=== PATIENT | male | born 1995 | race Caucasian/White ===

== ENCOUNTER 2018-11-13 21:35 | Inpatient (IN) | payer OTHER ==
[~2018-11-13] VITALS: Ht 175.3 cm; Wt 107.8 kg
--- NOTE | 2018-11-13 21:45 | NUR ---
PT BIB FRIEND FOR ALOC. PER PTS FRIEND THE PT HAD INJECTED METHAMPHETAMINE AND HEROIN EARLIER IN THE DAY. PTS FRIEND ALSO SAW THAT THE PT HAD TAKEN AN UNKNOWN AMOUNT OF ADDERALL AND XANAX. PTS FRIEND NOTICED THAT THE PTS BREATHING WAS BECOMING IRREGULAR ABOUT 30 DEFENSE ATTORNEY. PTS FRIEND DROVE PT TO THE ED AND PT HAD TO BE HELPED OUT OF FRIENDS VEHICLE. PT WAS NOT RESPONSIVE BUT HAD A PULSE. NO CPR WAS GIVEN. VISIBLE RESPIRATORY DISTRESS NOTED. TWO IV LINES WERE INITIATED ONE IN RT AC 18 G BY NETO GROVES AND ANOTHER IV LINE WAS STARTED BY JESSICA GROVES IN LEFT AC 18G. PER DR WANG VERBAL ORDERS NARCAN 4MG WAS GIVEN IVP BY NETO RN @2131. 8MG ZOFRAN WAS GIVEN BY JESSICA GROVES IVP @ 2138. 4MG NARCAN WAS GIVEN AT 2139 IVP THAT WAS ADMINISTERED BY DR WANG. PER ORDER ANOTHER ROUND OF NARCAN 4MG WAS GIVEN BY JESSICA GROVES. PT HAD ACUNA CATHETER PLACED BY JESSICA GROVES AT 2146. PT DID NOT BECOME ALERT OR RESPONSIVE AFTER MEDICATION OR ACUNA PLACEMENT. DR WANG DECIDED TO INTIBATE THE PT. PER MD ORDER PT WAS MEDICATED WITH SUCCINYLCHOLINE PRIOR TO INTIBATION. PT WAS INTIBATED BY DR WANG AT 2149. PT HAD NG TUBE PLACED AND HAD AN XRAY AFTER TO CONFIRM PLACEMENT. PTS MOTHER WAS ABLE TO VERIFY THAT PT HAS BEEN STRUGGLING WITH DRUG ABUSE FOR A FEW MONTHS. PER PTS MOM THE PT HAS BEEN IN AND OUT OF REHAB SINCE AUGUST. WILL CONTINUE TO MONITOR CLOSELY
--- NOTE | 2018-11-13 21:50 | NUR ---
PT INTUBATED BY DR WANG WITH MAXWELL RT AT BEDSIDE TO ASSIST. PT INTUBATED WITH 7.5 TUBE 25 AT THE LIP. ADMINISTERED 80MG SUCCITYLCHOLINE PRIOR TO INTUBATION.
--- NOTE | 2018-11-13 21:59 | NUR ---
16F OG TUBE PLACED BY MYSELF JESSICA GROVES. SECURED AND XRAY CALLED FOR PLACEMENT.
--- NOTE | 2018-11-13 22:00 | NUR ---
PT VOMITING FOAMY BROWN VOMIT. SUCTIONED BY MAXWELL GARRETT
--- NOTE | 2018-11-13 22:30 | NUR ---
WENT WITH DR WANG TO DISCUSS PLAN OF CARE WITH PTS MOTHER AND FAMILY MEMBERS
[2018-11-13 22:50] LABS: PLATELET COUNT 224 x10^3mcL (130-400); RED CELL DISTRIBUTION WIDTH 13.9 % (11.5-14.5)
[2018-11-13 22:52] LABS: BASOPHIL % 0 % (0-2)
--- NOTE | 2018-11-13 22:56 | NUR ---
PT BACK FROM CT. RN MERRY, EMT NATALIO AND RT AT BEDSIDE. REPORT RECIEVED FROM MERYR. PT INTUBATED AND ON VENTILATOR. PT NOTED TO BE HAVING FULL BODY MUSCLE SPASM AND TO BE IN A DECORTICATE POSTURING, TOES STIFF AND POINTED INWARD. PT HAD BOWEL MOVEMENT WHILE IN CT. PT PLACED ON FULL SECURE SOFTWARE ASSESSOR. RESTRAINTS IN PLACE.
[2018-11-13 23:07] LABS: CALCIUM 8.4 mg/dL (8.5-10.1); CARBON DIOXIDE 25.3 mmol/L (21-32); CHLORIDE SERUM 102 mmol/L (98-107); CREATININE SERUM 1.7 mg/dL (0.7-1.3); GFR1 52 mL/min; GLUCOSE SERUM 132 mg/dL (74-106); SODIUM SERUM 140 mmol/L (136-145)
--- NOTE | 2018-11-13 23:11 | NUR ---
RN BENNIE AND EMT KIRTI AT BEDSIDE TO HELP CLEAN PT FROM PREVIOUS BM.
[2018-11-13 23:18] LABS: AMPHETAMINE QUAL UR POSITIVE (See below)
[2018-11-13 23:21] LABS: ALBUMIN 3.5 g/dL (3.4-5.0); ALKALINE PHOSPHATASE 43 U/L (46-116); ALT/SGPT 132 U/L (16-63); AST/SGOT 77 U/L (15-37); BILIRUBIN TOTAL 0.3 mg/dL (0.20-1.00); TOTAL PROTEIN, SERUM 6.7 g/dL (6.4-8.2)
[2018-11-14] VITALS (17 sets, daily range): BP systolic 81–117; BP diastolic 46–68; Ht 175.3 cm; Wt 107.8 kg
--- NOTE | 2018-11-14 00:34 | NUR ---
PT STARTED ON FOURTH LITER BOLUS OF NS. BP 85/53 HR 112 02 93%. RT MADE AWARE OF LOW 02.
--- NOTE | 2018-11-14 00:38 | NUR ---
0038: RT AT BEDSIDE TO SUCTION PT THROUGH ETT. PTS O2 NOW 95%. 0046: PTS BP AT 65/47, PROPOFOL DRIP DECREASED TO RUN AT 25MCG/KG. YANELI AVERY AT BEDSIDE. 0100: PTS BP 88/65 PROPOFOL DRIP DECREASED TO 20MCG/KG.
--- NOTE | 2018-11-14 01:08 | NUR ---
REPORT GIVEN TO YANELI SANDERS TO ASSUME CARE OF PT.
[2018-11-14 01:19] LABS: PHOSPHOROUS 7.4 mg/dL (2.5-4.9)
--- NOTE | 2018-11-14 01:20 | NUR ---
PT TRANSFERRED TO ICU WITH EMT NATALIO AND RT MAXWELL. PT TRANSFERRED WITH VENT, BELT MAKER HELPER, AND PROPOFOL DRIP. YANELI SANDERS TO ASSUME CARE OF PT.
--- NOTE | 2018-11-14 01:30 | NUR ---
RECEIVED REPORT FROM YANELI PAINTING. PT IS ALERT AND RESPONSIVE TO PAINFUL STIMULUS. PT IS INTUBATED AND WAS OFF SEDATION ON ARRIVAL TO ICU. PT WAS ON 25 MCG/KG/MIN IN ER. PT APPEARS TO HAVE DECORTICATE POSTURING TO BLE. PT ALSO HAD SEIZURE ACTIVITY IN THE ED. PUPILS ARE 3 MM AND SLUGGISH BILATERALLY. EENT FREE OF DISCHARGE. NO JVD NOTED. TRACHEA MIDLINE. 7.5 ETT AT 25 LL. OGT PATENT AND INTACT. PT VENT SETTINGS INCLUDE: RATE: 14, PEEP:5, TV: 550, O2: 40%. LUNG SOUNDS DIMINISHED TO BLL, AND BUL. ABD IS SOFT AND ROUNDED. ACTIVE BOWEL SOUNDS X4Q. ACUNA DRAINING VIA GRAVITY. URINE IS YELLOW WITH FAIR OUTPUT. SKIN INTACT. PT IS NPO AT THIS TIME. FAMILY AT BEDSIDE. ALL QUESTIONS AND CONCERNS ANSWERED.
[2018-11-14 02:14] LABS: microscopic required? YES; urine erythrocyte TRACE (NEGATIVE)
[2018-11-14 04:03] LABS: BASOPHIL % 0.2 % (0-2); PLATELET COUNT 208 x10^3mcL (130-400)
[2018-11-14 04:12] LABS: CALCIUM 7.6 mg/dL (8.5-10.1); CARBON DIOXIDE 24.1 mmol/L (21-32); CHLORIDE SERUM 105 mmol/L (98-107); CREATININE SERUM 1.2 mg/dL (0.7-1.3); GFR1 > 60 mL/min; GLUCOSE SERUM 89 mg/dL (74-106); PHOSPHOROUS 3.3 mg/dL (2.5-4.9); POTASSIUM SERUM 4.6 mmol/L (3.5-5.1); SODIUM SERUM 137 mmol/L (136-145)
--- NOTE | 2018-11-14 05:22 | NUR ---
FIO2 TITRATED TO 30%, PT TOLERATING WELL.
--- NOTE | 2018-11-14 05:23 | NUR ---
ON ADMISSION TO ICU, PT'S PROPOFOL WAS OFF ON ROUTE FROM ED. PT WAS NOT RESTLESS. TITRATED FROM 0 TO 5 MCG/KG/MIN.
--- NOTE | 2018-11-14 05:25 | NUR ---
ORAL CARE, AND ACUNA CARE PROVIDED. PT TOLERATED WELL. PT SHOWED SOME RESTLESSNESS WHEN PERFORMING ORAL CARE.
--- NOTE | 2018-11-14 07:30 | NUR ---
RECIEVED REPORT FROM YANELI SANDERS TO ASSUME ALL CARES. ALL QUESTIONS AND CONCERNS ADDRESSED. WILL CONTINUE TO MONITOR.
--- NOTE | 2018-11-14 08:00 | NUR ---
VT TITRATED DOWN FROM [address] WETZEL. NO SIGNS OF RESP DISTRESS. WILL CONTINUE TO MONITOR.
--- NOTE | 2018-11-14 08:02 | NUR ---
DR. WETZEL ASSESSED PATIENT. UPDATES PROVIDED AND POC DISCUSSED. DR. WETZEL ON PHONE WITH POISON CONTROL AT THIS TIME. WILL CONTINUE TO MONITOR.
--- NOTE | 2018-11-14 08:09 | NUR ---
POISON CONTROL HAD NO SUGGESTIONS PER DR. WETZEL. WILL CONTINUE TO MONITOR.
--- NOTE | 2018-11-14 10:36 | NUR ---
PATIENT IS SEDATED BUT FOLLOWING COMMANDS, ABLE TO SHOW 2 FINGERS WITH HANDS. FAMILY AT BEDSIDE. PATIENT GESTURES YES UNDERSTANDING NOT TO PULL OUT TUBES OR LINES IF RESTRAINTS COME OFF. FAMILY MADE AWARE AND TO NOTIFY NURSE IF FAMILY LEAVES PATIENT ALONE. BILATERAL SOFT WRISTS RESTRAINTS REMOVED. PATIENT ON C-PAP 10/5, TOLERATING WELL. DIPRIVAN DRIP TITRATED OFF. RSS AT THIS TIME IS 3. WILL CONTINUE TO MONITOR.
--- NOTE | 2018-11-14 12:10 | NUR ---
DR. HERNANDEZ, RESIDENTS, MACHINE SPECIALIST AND PRIMARY RN AT BEDSIDE FOR MORNING ROUNDS. PLAN OF CARE DISCUSSED WITH PT'S PARENTS AT BEDSIDE. ALL IN AGREEMENT TO PLAN. WILL CONT TO MONITOR.
--- NOTE | 2018-11-14 12:41 | NUR ---
DR. WETZEL AT BEDSIDE ASSESSING PATIENT. PATIENT REMAINS TOO DROWSY TO EXTUBATE AT THIS TIME. WILL WAIT FOR PATIENT TO BECOME MORE ALERT AND THEN ATTEMPT WEANING PARAMTERS. RT LAUREL MADE AWARE. FAMILY AT BEDSIDE. WILL CONTINUE TO MONITOR.
--- NOTE | 2018-11-14 14:37 | NUR ---
TECH AT BEDSIDE FOR ECHOCARDIOGRAM.
--- NOTE | 2018-11-14 17:04 | NUR ---
RT LAUREL ADVANCED ETT AND SECURED AT 27 CM LL. NO SIGNS OF DISTRESS. WILL CONTINUE TO MONITOR.
--- NOTE | 2018-11-14 18:27 | NUR ---
PATIENT EXTUBATED BY RT LAUREL PER DR. WETZEL ORDER AT THIS TIME. PATIENT PLACED ON 3L NC. CURRENT O2 SAT 96%. NO SIGNS OF RESP DISTRESS. FAMILY AT BEDSIDE. WILL CONTINUE TO MONITOR.
--- NOTE | 2018-11-14 18:43 | NUR ---
PT PLACED ON CPAP AT 1030 TODAY, PEEP OF 5, PS OF 10. PT DID VERY WELL ON CPAP ALL DAY. ONCE PATIENT FINALLY STARTED TO WAKE UP AND FOLLOW COMMANDS. WEANING PARAMETERS WERE FOLLOWS: VC > 1100, MIP -43.9, RSBI 30.9. AT [address] WETZEL WAS CALLED AND ORDERED EXTUBATION, HHN AND IS FOR THE PATIENT. PT WAS EXTUBATED SUCESSFULLY AND PLACED ON 3LNC. PT DOING WELL. BS CLEAR. PT ADVISED NO RESPIRATORY DISTRESS, NO DISTRESS OBSERVED. RN AWARE.
--- NOTE | 2018-11-14 19:05 | NUR ---
RECEIVED REPORT FROM LEFTY GROVES TO ASSUME CARE
--- NOTE | 2018-11-14 19:30 | NUR ---
RECEIVED PT LAYING IN BED. PT IS DROWSY AT THIS TIME, A/O X 4. ABLE TO FOLLOW COMMANDS. RESPONDS TO VERBAL STIMULI. DENIES ZHOU. NO FACIAL DROOP NOTED.EENT FREE OF DISCHARGE. TRACHEA MIDLINE. NO JVD NOTED. BREATHING IS E/U ON 2 L NC. LUNGS SOUND CLEAR BILAT. DENIES ANY SOB. SYMMETRICAL CHEST EXPANSION NOTED. S1/S2 HEART SOUNDS AUSCULTATED. DENIES CP. CHEST WALL EQUAL AND SYMMETRICAL.PALPABLE PULSES X 4 EXTREMETIES. SKIN IS WARM AND DRY. NO EDEMA NOTED. RAC AND LAC IV INTACT, SECURED, DRESSING CDI. NO S/S OF INFILTRATION NOTED. NS INFUSING @ 100 ML/HR. SCD IN PLACE. GENERALIZED WEAKNESS. NO JOINT SWELLING/DEFORMITY NOTED. PT ABLE TO REPOSITION SELF INDEPENDENTLY. PT NPO AT THIS TIME FOLLOWING EXTUBATION @ 18:27. NO N/V NOTED. ABD IS SOFT, ROUND, NONTENDER TO PALPATION. BOWEL SOUNDS ACTIVE X 4 QUADRANTS. NO BM NOTED. ACUNA INTACT/SECURED, DRAINING VIA GRAVITY WITH YELLOW COLORED URINE NOTED. NO SCOROTAL EDEMA NOTED. SKIN IS INTACT. PT ABLE TO REPOSITION SELF INDEPENDENTLY. PT WITH AN ORAL TEMP OF 100.6, COOLING MEASURES IN PLACE. PT IS CALM AT THIS TIME. FAMILY AT THE BEDSIDE. BED IN LOW POSITION. CALL LIGHT IN REACH. WILL CONTINUE TO MONITOR
--- NOTE | 2018-11-14 22:15 | NUR ---
SWALLOW SCREEN PERFORMED POST EXTUBATION. HOB WAS ELEVATED. PT WAS ABLE TO SWALLOW SMALL SIPS OF WATER WITHOUT COUGHING/CHOCKING. NO S/S OF ACUTE DISTRESS NOTED. PT TOLERATED WELL. PT MEDICATED WITH TYLENOL FOR A TEMP OF 100.5 AFTERWARDS. COOLING MEASURES IN PLACE. WILL CONTINUE TO MONITOR
--- NOTE | 2018-11-15 01:04 | NUR ---
PT IS SLEEPING, EASILY AROUSABLE. PT ON 2 L NC STATTING 96%. NO S/S OF ACUTE DISTRESS NOTED. FAMILY AT THE BEDSIDE. BED IN LOW POSITION. CALL LIGHT IN REACH. WILL CONTINUE TO MONITOR
[2018-11-15 03:37] VITALS: BP 107/51
--- NOTE | 2018-11-15 03:50 | NUR ---
Pt REFUSES HHN TX AT THIS TIME. SPO2 96%. NO RESP DISTRESS NOTED. WILL MONITOR.
--- NOTE | 2018-11-15 05:35 | NUR ---
X-RAY TECH AT THE BEDSIDE
[2018-11-15 05:48] LABS: BASOPHIL % 0.3 % (0-2); PLATELET COUNT 220 x10^3mcL (130-400); RED CELL DISTRIBUTION WIDTH 14.1 % (11.5-14.5)
[2018-11-15 06:13] LABS: CALCIUM 8.4 mg/dL (8.5-10.1); CARBON DIOXIDE 28.5 mmol/L (21-32); CHLORIDE SERUM 100 mmol/L (98-107); CREATININE SERUM 0.8 mg/dL (0.7-1.3); GFR1 > 60 mL/min; GLUCOSE SERUM 81 mg/dL (74-106); PHOSPHOROUS 2.7 mg/dL (2.5-4.9); POTASSIUM SERUM 3.2 mmol/L (3.5-5.1); SODIUM SERUM 129 mmol/L (136-145)
--- NOTE | 2018-11-15 07:02 | NUR ---
REPORT GIVEN TO LEFTY GROVES TO ASSUME CARE
[2018-11-15 07:30] VITALS: BP 116/70
--- NOTE | 2018-11-15 08:35 | NUR ---
DR. WETZEL AT BEDSIDE TO ASSESS PATIENT. UPDATES PROVIDED AND POC DISCUSSED. WILL CONTINUE TO MONITOR.
--- NOTE | 2018-11-15 10:11 | NUR ---
FEBRUARY FROM POISON CONTROL CALLED AND RECIEVED UPDATES ON PATIENT'S HEALTH STATUS. PATIENT IS A/O X4, EXTUBATED ON 11/14/18 AND CURRENTLY ON 2L NC. POISON CONTROL STATES PATIENT'S HEALTH SHOULD JUST IMPROVE. NO RECOMMENDATIONS. WILL CONTINUE TO MONITOR.
[2018-11-15 11:34] VITALS: BP 136/68
--- NOTE | 2018-11-15 11:56 | NUR ---
F/C DC'D AT THIS TIME. PATIENT TOLERATED WELL. 1600 ML OF CLEAR YELLOW URINE DRAINED. WILL CONTINUE TO MONITOR.
--- NOTE | 2018-11-15 16:14 | NUR ---
PATIENT TRANSFERRED TO TELE VIA BED ATTACHED TO ENGINEERING DRAWINGS CHECKER ACCOMPANIED BY NURSE. VSS. REPORT GIVEN TO YANELI ROMAN PRIOR TO PATIENT ARRIVING TO FLOOR. ALL QUESTIONS AND CONCERNS ADDRESSED. ALL BELONGINGS SENT WITH PATIENT AND FAMILY. FAMILY FOLLOWED PATIENT UP TO ROOM.
--- NOTE | 2018-11-15 16:30 | NUR ---
RECEIVED PATIENT FROM ICU VIA BED SEEN ASLEEP, AROUSABLE, DROWSY, PER MECHANICAL SERVICE TECHNICIAN ATIVAN 2MG IVP HAD JUST GIVEN, V/S CHECKED BP 107/49, HR =115, RR 16, O2SAT 91% ON ROOM AIR, TEMP 99.2. IVF NS TO RAC INFUSING WELL TO AT 80ML/HR. S/L TO LAC INTACT AND PATENT. PLAN OF CARE DISCUSSED. CALL LIGHT PLACED WITHIN EASY REACH. SIDERAILS UP X2. PATIENT'S FAMILY AT BEDSIDE.
--- NOTE | 2018-11-15 20:08 | NUR ---
PT CURRENTLY RESTING IN BED, NO ACUTE DISTRESS. A/O X4, FORGETFUL AT TIMES. DROWSY BUT ARROUSABLE. TELE #45 SHOWING SINUS TACHYCARDIA, DENIES CHEST PAIN. PULSES PALPABLE IN ALL EXTREMITIES, NO EDEMA NOTED. LUNG SOUNDS CTA BILATERALLY, DENIES SOB. RECEIVING O2 VIA NC AT 2LPM. BOWEL SOUNDS ACTIVE, LAST BM 11/15/18, DIARRHEA. VOIDING FREELY. GENERALIZED WEAKNESS, AMBULATORY WITH ASSIST. SKIN INTACT. IV PATENT AND INTACT. BED IN LOWEST POSITION, SIDE RAILS UP X2, CALL LIGHT WITHIN REACH. WILL CONTINUE TO MONITOR.
[2018-11-15 21:41] VITALS: BP 110/68
--- NOTE | 2018-11-16 00:43 | NUR ---
PT CURRENTLY RESTING IN BED, NO ACUTE DISTRESS. WILL CONTINUE TO MONITOR.
[2018-11-16 04:29] LABS: CK-BB 0 % (0); CK-MB 3 % (0-3); CK-MM 97 % (97-100); MACRO TYPE 1 0 % (Not Observed); MACRO TYPE 2 0 % (Not Observed)
[2018-11-16 05:32] VITALS: BP 122/71
--- NOTE | 2018-11-16 06:24 | NUR ---
PT SLEPT PERIODICALLY THROUGHOUT NIGHT, NO ACUTE DISTRESS. ALL NEEDS MET AND ATTENDED TO. NO SIGNIFICANT CHANGES. IV PATENT AND INTACT. BED IN LOWEST POSITION, SIDE RAILS UP X2, CALL LIGHT WITHIN REACH. WILL ENDORSE CARE TO ONCOMING NURSE.
[2018-11-16 06:49] LABS: BASOPHIL % 0.3 % (0-2); PLATELET COUNT 219 x10^3mcL (130-400); RED CELL DISTRIBUTION WIDTH 13.5 % (11.5-14.5)
[2018-11-16 07:16] LABS: CALCIUM 8.1 mg/dL (8.5-10.1); CARBON DIOXIDE 25.1 mmol/L (21-32); CHLORIDE SERUM 107 mmol/L (98-107); CREATININE SERUM 0.8 mg/dL (0.7-1.3); GFR1 > 60 mL/min; GLUCOSE SERUM 91 mg/dL (74-106); POTASSIUM SERUM 3.8 mmol/L (3.5-5.1); SODIUM SERUM 140 mmol/L (136-145)
--- NOTE | 2018-11-16 08:00 | NUR ---
DROWSY.DENIES ANY PAIN/DISCOMFORT.LUNGS CLEAR.ON SR-ST ON THE MONITOR.IVF NS GOING AT 70 ML/HR INFUSING WELL.FATHER AT BEDSIDE.CALL LIGHT WITHIN REACH.INSTRUCTED TO CALL FOR ANY PAIN/DISCOMFORT.WILL CONTINUE TO MONITOR PT.
[2018-11-16 09:30] VITALS: BP 107/69
--- NOTE | 2018-11-16 10:00 | NUR ---
AND MEDICINE TEAM AT BEDSIDE. PER WILL D/C THE ROUND THE CLOCK ATIVAN AND WILL ONLY ORDER PRN ATIVAN.PT NEEDS TO WALK.WILL ORDER PT EVAL.
--- NOTE | 2018-11-16 14:10 | NUR ---
Initial Nutrition Assessment- Dx: Polysubstance overdose, respiratory arrest PMHx: asthma, ADHD PSHx: knee surgery Labs: (11/16) BUN 3 L, Ca 8.1 L, Hct 40 L, RBC 4.39 L (11/13) AST 77 H, ALT 132 H, ALP 43 H, amylase 173 H Meds: ativan, colace, NaCl IV, heparin Diet: regular diet x 1 day PO Intake: 40-100% of meals Ht: 5'9 Wt: 229 lb, 104 kg BMI: 35.1 kg/m2 (Obese Class II) IBW: 160 lb, 73 kg; Adj IBW Obesity: 177 lb, 81 kg %IBW: 143 UBW: 220 lb Age: 23 yrs old Food Allergies: NKFA Skin:is intact. Nicholas: 18 Edema: no edema noted. GI: abd is soft/round w/ active bowel sounds. Last BM 11/15/18, c/o diarrhea Per H&P, pt was brought in by friend for ALOC. Per friend, pt took an unknown amount of xanax and adderall in addition to heroine and crystal meth. He then noticed him becoming unresponsive w/ shallow breathing so he brouight him to the ED. Pt's mother states that he has been in and out of rehab for substance abuse. Pt's friend day before admission and mother believs that he might have intentionally tried to overdose. Bed huddle Pt visit, +lethargic, pt is pending psych consult. w/ sitter at bedside, extubated 11/14/18 Pt c/o decreased appetite. Problem with: no c/o N/V/D/C. Problems with: Chewing: no Swallowing: no Current appetite: poor to fair Recent wt change: wt gain %wt change: n/a Vitamin/Supplement use: none Special diet at home: regular diet Physical activity: none Education: pt is not interested. Estimated Nutritional Needs Based on actual body weight 81 kg Energy: 6137-6328 kcal/d (25-30 kcal/kg-maintenance) Protein: 65-81 g/d (.8-1 g/kg-maintenance and preservation of lean body mass) Fluid: 7425-5201 ml/d (1 ml/kcal-fluid balance) or per doctor Nutrition Diagnosis Increased risk for malnturition related to behavioral factors as evidenced by pt's report of decreased appetite, polysubstance abuse and suicidal ideation. Intervention *Recommend continuing Regular diet per MD order. *Consider adding Ensure Enlive BID if/when PO intake remains poor >5 days. Monitor/Evaluate Goal: PO intake at least 75% of estimated needs Monitor: PO intake, Labs, GI function F/U in 3-5 days as moderate risk (11/19-11/21)
--- NOTE | 2018-11-16 14:10 | NUR ---
*Recommend continuing Regular diet per MD order. *Consider adding Ensure Enlive BID if/when PO intake remains poor >5 days.
--- NOTE | 2018-11-16 17:00 | NUR ---
WENT TO TALK TO PT AND FAMILY REGARDING THE PLAN.PT WILL BE DISCHARGE TOMORROW.ALSO ORDERED FOR PT TO SHOWER.
[2018-11-16 17:30] VITALS: BP 127/75
--- NOTE | 2018-11-16 17:30 | NUR ---
PT HAD A SHOWER.TOLERATED IT WELL.CONNECTED PT BACK TO TELEL.
--- NOTE | 2018-11-16 17:46 | NUR ---
GAVE PT ATIVAN 1 MG PO FOR C/O ANXIETY.
--- NOTE | 2018-11-16 19:20 | NUR ---
REC'D PT FROM DAY NURSE. FAMILY AT BEDSIDE. PT RESTING IN BED SLEEPING. AWAKENS WITH VERBAL STIMULI. DROWSY. AAOX4, SPEECH CLEAR, FOLLOWS COMMANDS. TELE 45. DENIES CP, DIZZINESS, OR PALPITATIONS. NO EDEMA NOTED. BREATHING EVEN/UNLABORED ON RA. ABD SOFT/ROUND. DENIES TENDERNESS, PAIN, OR N/V. VOIDING FREELY. AMBULATORY. SKIN INTACT. IV TO RAC PATENT AND INFUSING. IV TO LAC FLUSHED AND PATENT. SITES WNL. CALL LIGHT WITHIN REACH, BED AT LOWEST POSITION. WILL CONTINUE TO MONITOR.
[2018-11-16 21:10] VITALS: BP 123/78
--- NOTE | 2018-11-16 23:49 | NUR ---
PT C/O ANXIETY. ATIVAN 1 MG PO GIVEN PER ORDER. AUNT AT BEDSIDE. WILL CONTINUE TO MONITOR.
--- NOTE | 2018-11-17 00:52 | NUR ---
PT RESTING IN BED WITH EYES CLOSED. LAYING ON R SIDE. NO SIGNS OF DISTRESS NOTED. BREATHING EVEN/UNLABORED ON RA. CALL LIGHT WITHIN REACH, BED AT LOWEST POSITION, AUNT AT BEDSIDE. WILL CONTINUE TO MONITOR.
--- NOTE | 2018-11-17 05:34 | NUR ---
PT RESTING IN BED WITH EYES CLOSED. APPEARS TO BE SLEEPING. BREATHING EVEN/UNLABORED ON RA. NO SIGNS OF DISTRESS NOTED. NO SIGNIFICANT CHANGES DURING SHIFT. CALL LIGHT WITHIN REACH, BED AT LOWEST POSITION. WILL ENDORSE TO DAY NURSE.
[2018-11-17 06:07] VITALS: BP 100/63
--- NOTE | 2018-11-17 06:26 | NUR ---
PER WALL MIRROR DEPARTMENT SUPERVISOR, PT REFUSED LAB DRAW THIS AM. PT STATED HE JUST STARTED FALLING ASLEEP AGAIN AND REFUSES AT THIS TIME BUT IS WILLING TO GET BLOOD DRAWN LATER ON. WALL MIRROR DEPARTMENT SUPERVISOR NOTIFIED. INSTRUCTED TO CALL LAB ONCE PT IS READY.
--- NOTE | 2018-11-17 08:37 | NUR ---
AAO TIMES 4. TELE # 45 SR. LUNGS CTA. NO SOB. O2 SAT ON RA 98% BS'S ACTIVE TIMES 4. PHILIP CHRISTIASNON. IV SITE CDI. COOPERATIVE. FAMILY MEMBER AT BEDSIDE. NO C/O PAIN. NO SOB.
[2018-11-17 09:45] VITALS: BP 122/65
--- NOTE | 2018-11-17 09:45 | NUR ---
AAO TIMES 4. FAMILY PRESENT, SUPPORTIVE. LUNGS CTA. NO SOB. O2 SAT ON RA 98%. BS'S ACTIVE TIMES 4. PALACIOS STRONG. IV SITES TO RAC AND LAC PATENT, CDI. COOPERATIVE. PERIPHERAL PULSES PALPBLE, NO EDEMA. NO C/O PAIN.
[2018-11-17 10:13] VITALS: BP 100/63
[2018-11-17 12:45] VITALS: BP 133/85
--- NOTE | 2018-11-17 13:34 | NUR ---
AAO TIMES 4. GAVE PATIENT DISCHARGE INSTRUCTIONS, NO PRESCRIPTION. HIS FAMILY HAS BEEN HERE ALL DAY, THEY HAVE BEEN QUIET AND SUPPORTIVE. THERE HAS BEEN NO COMPLAINTS OR BEHAVIOR ISSUES. HE WAS EAGER TO GO TO [facility]. DC'D THE SL ANGIO INTACT. HE VERBALIZED "I UNDERSTAND" TO ALL INSTRUCTIONS. NO C/O PAIN. NO C/O OR CALL FOR ANTI ANXIETY MEDICATIONS.
== END 2018-11-17 13:25 | disposition home or self-care (01) | DRG 917 ==
LOC: ED 21:35 → IC 11-14 00:28 → MU 11-15 16:36 → DU 11-16 22:33
PROVIDERS: Emergency Medicine; ADMIT Family Medicine
PROC: 5A1935Z Respiratory Ventilation, Less than 24 Consecutive Hours (ICD-10-PCS; principal; 2018-11-14)
PROC: 0BH17EZ Insertion of Endotracheal Airway into Trachea, Via Natural or Artificial Opening (ICD-10-PCS; 2018-11-14)
DX: T40.1X1A Poisoning by heroin, accidental (unintentional), initial encounter (principal); N17.0 Acute kidney failure with tubular necrosis; I21.A1 Myocardial infarction type 2; G92 Toxic encephalopathy; J96.20 Acute and chronic respiratory failure, unspecified whether with hypoxia or hypercapnia; J69.0 Pneumonitis due to inhalation of food and vomit; T43.621A Poisoning by amphetamines, accidental (unintentional), initial encounter; E83.41 Hypermagnesemia; F90.9 Attention-deficit hyperactivity disorder, unspecified type; R80.9 Proteinuria, unspecified; E83.39 Other disorders of phosphorus metabolism; F17.210 Nicotine dependence, cigarettes, uncomplicated; Y92.018 Other place in single-family (private) house as the place of occurrence of the external cause; N18.9 Chronic kidney disease, unspecified; J44.9 Chronic obstructive pulmonary disease, unspecified; Z91.19 Patient's noncompliance with other medical treatment and regimen
CPT/HCPCS: 31500; 36600; 83880; 90658; 97116-GP; 97530-GP; G0480; J1644; J1953; J2060; J2310; J2405; J2765; J3480; J3490; J7030; J7620; Q0092